=== PATIENT | male | born 1975 | race Caucasian/White ===

== ENCOUNTER 2020-04-24 00:06 | Emergency (ER) | payer OTHER, SELFPAY ==
[2020-04-24] VITALS (17 sets, daily range): BP systolic 129–163; BP diastolic 64–82; PULSE 51–77; RESP 11–18; TEMP 36.6; O2SAT 92–100; BMI 42.5
--- NOTE | 2020-04-24 00:13 | ED_ITS ---
HPI - Abdominal Pain General Chief Complaint: Abdominal Pain Stated Complaint: L Upper Quadrent Pain Time Seen by Provider: 04/24/20 00:06 Source: patient and EMS Mode of arrival: EMS Limitations: no limitations History of Present Illness HPI narrative: 44-year-old male nonsmoker with history of acute coronary syndr ome and left ureteral problem presents by EMS for evaluation of severe epigastric and left upper quadrant pain since this evening. His pain is intense and comes in waves. He denies any provocation or palliation. He has had nausea and vomited once. He admits to some diarrhea as well. He feels bloated and generally uncomfortable. He states this feels entirely different than a prior heart attack in 2017. Denies chest pain or shortness of breath. He is not dizzy nor weak or lightheaded. He denies any exposure to bad food or persons known to had COVID-19. MD complaint: abdominal pain Onset (ago): hour(s) Pain Consistency: intermittent Location: LUQ and epigastric Severity: moderate Quality: cramping and aching Radiation: LUQ Relieving factors: nothing Exacerbating factors: nothing Associated symptoms: nausea, vomiting and diarrhea Related Data Previous Rx's Medication Instructions Recorded hydrocodone-acetaminophen 1 tab PO Q4-6H PRN #10 tab 04/24/20 hyoscyamine sulfate 0.125 mg PO BID-QID PRN #20 tab 04/24/20 ondansetron 4 mg PO TID-QID PRN #10 tab 04/24/20 Allergies Allergy/AdvReac Type Severity Reaction Status Date / Time Penicillins Allergy Swelling Verified 04/24/20 00:59 of Lip/Tongue/Throat trimethoprim Allergy Swelling Verified 04/24/20 00:59 of Lip/Tongue/Throat Review of Systems Constitutional Constitutional: Denies chills, Denies fatigue, Denies fever(s), Denies frequent falls, Denies lethargy and Denies weakness Eyes Eyes: Denies change in vision, Denies eye discharge, Denies irritation and Denies loss of vision ENT Ears, Nose, Mouth, and Throat: Denies change in voice, Denies dizziness, Denies neck pain, Denies sore throat and Denies throat swelling Cardiovascular Cardiovascular: Denies chest pain, Denies irregular heart rhythm, Denies lightheadedness, Denies palpitations, Denies dyspnea, Denies dyspnea on exertion and Denies orthopnea Respiratory Respiratory: Denies cough, Denies dyspnea, Denies dyspnea on exertion and Denies wheezing Gastrointestinal Gastrointestinal: Reports abdominal pain, Denies change in bowel habits, Reports diarrhea, Reports nausea and Reports vomiting Musculoskeletal Musculoskeletal: Denies neck pain and Denies numbness Integumentary/Breasts Skin/Breast: Denies pruritus, Denies erythema, Denies rash and Denies wounds Neurologic Neurologic: Denies behavioral changes, Denies confusion, Denies dizziness, Denies frequent falls, Denies loss of vision, Denies numbness and Denies weakness Psychiatric Psychiatric: Denies anxiety, Denies behavioral changes, Denies confusion, Denies depression, Denies homicidal ideation and Denies suicidal ideation Endocrine Endocrine: Denies fatigue, Denies flushing and Denies palpitations Hematologic/Lymphatic Hematologic/Lymphatic: Denies easy bruising Allergic/Immunologic Allergic/Immunologic: Denies urticaria, Denies throat swelling and Denies wheezing Patient History Social History Smoking Status: Never smoker Smoking Status: Never smoker alcohol intake frequency: 0-2 drinks per day Substance Use Type: does not use Exam Narrative Exam Narrative: GENERAL: [44] year old patient appears stated age. Well- nourished, well-developed patient, in moderate distress, obviously uncomfortable, rubbing his upper abdomen and left upper quadrant. Holding an emesis bag. HEAD: Atraumatic. Normocephalic. EYES: Pupils equal round and reactive. Extraocular motions intact. No scleral icterus. No injection or drainage. ENT: Nose without bleeding, purulent drainage. Throat without erythema, tonsillar hypertrophy or exudate. Airway patent. NECK: Trachea midline. Non tender CARDIOVASCULAR: Regular rate and rhythm without murmurs, gallops, or rubs. RESPIRATORY: Clear to auscultation. Breath sounds equal bilaterally. No wheezes, rales, or rhonchi. GASTROINTESTINAL: Abdomen soft, tender in the epigastrium and left upper quadrant EXTREMITIES: No edema or joint tenderness. BACK: Nontender without deformity or crepitance. No flank tenderness. NEURO: AOx3. SKIN: No rash or erythema of visible areas Initial Vital Signs Initial Vital Signs: Vital Signs Pulse Rate 77 04/24/20 00:44 Pulse Oximetry 97 04/24/20 00:44 Course Orders Ordered: ED Orders 04/24/20 00:12 EKG-12 Lead Stat 04/24/20 00:30 Complete Blood Count AUTO DIFF Stat Comprehensive Metabolic Panel Stat D Dimer Stat Lipase Stat Troponin & CK Cardiac Panel Stat 04/24/20 01:03 CT abdomen pelvis w con Stat 04/24/20 04:45 XR acute abdomen series Stat Discontinued Medications Hydrocodone Bitart/Acetaminophen (Vicodin 5/325 Prepack) 1 bottle MISC SEEINSTR ONE Stop: 04/24/20 06:06 Al Hydrox/Mg Hydrox/Simethicone 20 ml/ Lidocaine HCl 15 ml 0 ml PO NOW ONE Stop: 04/24/20 02:36 Last Admin: 04/24/20 02:44 Dose: 35 ml Documented by: JACQUELINE Hydromorphone HCl (Dilaudid) 0.5 mg IV NOW ONE Stop: 04/24/20 00:13 Last Admin: 04/24/20 00:54 Dose: 0.5 mg Documented by: VEE Hydromorphone HCl (Dilaudid) 1 mg IV NOW ONE Stop: 04/24/20 03:07 Last Admin: 04/24/20 03:19 Dose: 1 mg Documented by: JACQUELINE Sodium Chloride (Normal Saline 0.9%) 1,000 mls @ 1,000 mls/hr IV BOLUS ONE Stop: 04/24/20 01:11 Last Infusion: 04/24/20 02:35 Dose: 0 mls/hr Documented by: Admin: 04/24/20 00:54 Dose: 1,000 mls/hr Documented by: VEE Ondansetron HCl (Zofran) 4 mg IV NOW ONE Stop: 04/24/20 00:13 Last Admin: 04/24/20 00:54 Dose: 4 mg Documented by: VEE Ondansetron HCl (Zofran Odt Prepack) 1 bottle MISC SEEINSTR ONE Stop: 04/24/20 06:06 Pantoprazole Sodium (Protonix) 40 mg IV NOW ONE Stop: 04/24/20 00:13 Last Admin: 04/24/20 00:54 Dose: 40 mg Documented by: VEE Vital Signs Vital signs: Vital Signs - 8 hr 04/24/20 00:44 04/24/20 00:50 04/24/20 01:00 Temperature 98 F Pulse Rate 77 74 75 Respiratory Rate 18 Blood Pressure 163/81 H 152/74 H Pulse Oximetry 97 100 97 MDM - Abdominal Pain Lab Data Result diagrams: 04/24/20 00:30 04/24/20 00:30 Labs: Lab Results 04/24/20 04/24/20 04/24/20 Range/Units 00:30 00:30 00:30 WBC 9.9 (4.5-11.0) X10^3/uL RBC 5.66 (4.5-5.9) X10^6/uL Hgb 17.4 (13.5-17.5) g/dL Hct 50.1 (41-53) % MCV 88.5 (80-100) fL MCH 30.8 (26-34) PG MCHC 34.8 (30-36) % RDW 13.4 (11.6-14.8) % Plt Count 189 (150-400) X10^3/uL Neut % (Auto) 68.4 (50-75) % Lymph % (Auto) 24.4 L (25-40) % [place] % (Auto) 5.3 (3-14) % Eos % (Auto) 1.3 L (2-4) % Baso % (Auto) 0.6 (0-2) % Neut # (Auto) 6700 (0881-1634) /uL Lymph # (Auto) 2400 (6120-7699) /uL [place] # (Auto) 500 (0-900) /uL Eos # (Auto) 100 (0-450) /uL Baso # (Auto) 100 (0-100) /uL D-Dimer 249 H (<230) ng/mL Sodium 140 (137-145) mmol/L Potassium 3.6 (3.4-5.1) mmol/L Chloride 102 (98-107) mmol/L Carbon Dioxide 30 (22-32) mmol/L BUN 15 (9-20) mg/dL Creatinine 1.05 (0.66-1.25) mg/dL Estimated GFR > 60.0 (>60) mL/min BUN/Creatinine Ratio 14.3 (6-22) Glucose 134 H (70-100) mg/dL Calcium 9.3 (8.4-10.2) mg/dL Total Bilirubin 0.6 (0.2-1.3) mg/dL AST 54 (17-59) IU/L ALT 104 H (<50) IU/L Alkaline Phosphatase 90 (38-126) U/L Total Creatine Kinase 144 (55-170) U/L CK-MB (CK-2) 2.61 H (<2.37) ng/mL CK-MB (CK-2) Rel Index 1.8 (1.5-5.0) % Troponin I < 0.012 (0.01-0.034) ng/mL Total Protein 8.3 H (6.3-8.2) g/dL Albumin 4.8 (3.5-5.0) g/dL Globulin 3.5 (1.7-4.1) g/dL Albumin/Globulin Ratio 1.4 (1.0-2.8) Lipase 92 (23-300) U/L MDM Narrative Medical decision making narrative: CT suggests ileus without obstruction. Labs reassuring. No vomiting. Pain greatly improved. Xray a few hours later dem onstrates no SBO. Return precautions given. Questions answered to his satsfaction. Discharge Plan Departure Patient Disposition: Home Clinical Impression: Abdominal pain, Vomiting and diarrhea Instructions: Diarrhea, DI for Abdominal Pain-Adult, DI for Vomiting -- Adult Activity Restrictions/Additional Instructions: 1. Drink plenty of fluids with frequent small sips. 2. For the next 24 hours a clear liquid diet is advised. After that please employ a brat diet which would include bananas, rice, apples, toast. 3. Please take medications as directed. 4. Please follow-up with your doctor in the next 1-2 days. Call the office for an appointment. 5. Please return to the emergency Department for any worsening or persistent symptoms, such as increasing pain or fever, or persistent vomiting Prescriptions: New hydrocodone-acetaminophen 5-325 mg tablet 1 tab PO Q4-6H PRN (Reason: pain) Qty: 10 RF: 0 hyoscyamine sulfate 0.125 mg tablet 0.125 mg PO BID-QID PRN (Reason: dyspepsia) Qty: 20 RF: 0 ondansetron 4 mg tablet,disintegrating 4 mg PO TID-QID PRN (Reason: nausea and vomiting) Qty: 10 RF: 0
[2020-04-24 00:39] LABS: Hematocrit 50.1 % (41-53); Hemoglobin 17.4 g/dL (13.5-17.5); Mean Corpuscular HGB Conc 34.8 % (30-36); White Blood Cell Count 9.9 X10^3/uL (4.5-11.0)
[2020-04-24 00:46] LABS: Add Manual Diff / Slide Review NO; Basophils Absolute Auto 100 /uL (0-100); Basophils Percent Auto 0.6 % (0-2); Eosinophils Absolute Auto 100 /uL (0-450); Eosinophils Percent Auto 1.3 % (2-4); Lymphocytes Absolute Auto 2400 /uL (1100-4500); Lymphocytes Percent Auto 24.4 % (25-40); Mean Corpuscular Hemoglobin 30.8 PG (26-34); Mean Corpuscular Volume 88.5 fL (80-100); Monocytes Absolute Auto 500 /uL (0-900); Monocytes Percent Auto 5.3 % (3-14); Neutrophils Absolute Auto 6700 /uL (1500-7000); Neutrophils Percent Auto 68.4 % (50-75); Platelet Count 189 X10^3/uL (150-400); Red Blood Cell Count 5.66 X10^6/uL (4.5-5.9); Red Cell Distribution Width 13.4 % (11.6-14.8)
[2020-04-24 00:49] LABS: D Dimer 249 ng/mL (<230)
[2020-04-24 00:50] LABS: Alanine Aminotransferase 104 IU/L (<50); Albumin 4.8 g/dL (3.5-5.0); Albumin Globulin Ratio 1.4 (1.0-2.8); Alkaline Phosphatase 90 U/L (38-126); Aspartate Aminotransferase 54 IU/L (17-59); BUN Creatinine Ratio 14.3 (6-22); Bilirubin Total 0.6 mg/dL (0.2-1.3); Blood Urea Nitrogen 15 mg/dL (9-20); Calcium 9.3 mg/dL (8.4-10.2); Carbon Dioxide 30 mmol/L (22-32); Chloride 102 mmol/L (98-107); Creatine Kinase 144 U/L (55-170); Estimated Glomerular Filt Rate > 60.0 mL/min (>60); Globulin 3.5 g/dL (1.7-4.1); Glucose 134 mg/dL (70-100); HEMOLYSIS < 15 (0-50); Lipase 92 U/L (23-300); Potassium 3.6 mmol/L (3.4-5.1); Sodium 140 mmol/L (137-145); Total Protein 8.3 g/dL (6.3-8.2)
[2020-04-24] MEDS: ONDANSETRON 4 MG/2 ML INJ IV (00:54)
[2020-04-24] MEDS: HYDROMORPHONE 0.5 MG INJ IV (00:54)
[2020-04-24] MEDS: SODIUM CHLORIDE 0.9% 1,000 ML 1000 ML IV (00:54)
[2020-04-24] MEDS: PANTOPRAZOLE 40 MG VIAL IV (00:54)
[2020-04-24 01:02] LABS: Troponin I < 0.012 ng/mL (0.01-0.034)
--- NOTE | 2020-04-24 01:03 | DI.CT.S_ITS ---
PROCEDURE: CT ABDOMEN PELVIS W CON INDICATIONS: severe upper abdomen pain TECHNIQUE: After the administration of intravenous contrast, 5 mm thick sections acquired from the diaphragm to the symphysis. 5 mm coronal and sagittal reformats were acquired. For radiation dose reduction, the following was used: automated exposure control, adjustment of mA and/or kV according to patient size. COMPARISON: [facility], CR, XR ACUTE ABDOMEN SERIES, 04/24/2020, 4:34. FINDINGS: Image quality: Excellent. ABDOMEN: Lung bases: There is mild dependent atelectasis. Heart size is normal. Solid organs: There is diffuse hypoattenuation of the liver consistent with fatty infiltration with mild relative sparing along the gallbladder fossa. The gallbladder appears within normal limits without calcified gallstones. Biliary system is non-dilated. Pancreas demonstrates no discrete mass. No peripancreatic fat stranding or fluid collections. No pancreatic duct dilatation. The spleen is normal in size. No adrenal nodules. There is moderate left hydroureteronephrosis with prominent distention of the mid and distal ureter. This extends to the terminal segment of the ureter at the ureterovesicular junction which is nondistended . No calcified obstructing stone visualized. There is mild wall enhancement of the nondistended segment of ureter. There are 2 punctate densities within the left kidney which may represent punctate nonobstructing stones. There is no right hydronephrosis or right renal stones. The right ureter is nondistended. Peritoneum and bowel: Bowel loops demonstrate normal wall thickness and caliber. There is colonic diverticulosis without acute diverticulitis. No free fluid or air. Nodes and vessels: There are few mildly enlarged mayelin hepatis lymph nodes measuring up to 1.2 cm in short axis. Aorta and inferior vena cava are normal in size. Miscellaneous: No ventral hernias. PELVIS: Genitourinary: Bladder wall thickness is normal. Miscellaneous: No inguinal hernias or adenopathy. Bones: No suspicious bony lesions. No vertebral body compression fractures. IMPRESSION: 1. Moderate left hydroureteronephrosis with prominent distention of the mid and distal left ureter extending to a short nondistended segment at the UVJ which demonstrates mild wall enhancement. No calcified obstructing stone visualized. Differential considerations include a ureteral stricture or an intramural mass lesion. Recommend further evaluation with cystoscopy if clinically indicated. 2. Colonic diverticulosis without acute diverticulitis. 3. Mildly enlarged mayelin hepatis lymph nodes are nonspecific and may be reactive. 4. Hepatic steatosis. Dictated by: Claus Corbin M.D. on 04/24/2020 at 9:05 Approved by: Claus Corbin M.D. on 04/24/2020 at 9:15
[2020-04-24 01:05] LABS: CKMB % Relative Index 1.8 % (1.5-5.0); Creatine Kinase MB 2.61 ng/mL (<2.37)
[2020-04-24] MEDS: MAG HYDROX/ALUMINUM/SIMETH SUS 20 ML, LIDOCAINE VISCOUS 2% 15 ML PO (02:44)
--- NOTE | 2020-04-24 03:04 | PC.NURSE ---
Pt reports had no relief from gi Cocktail.
[2020-04-24] MEDS: HYDROMORPHONE 1 MG INJ IV (03:19)
--- NOTE | 2020-04-24 04:45 | DI.RAD.S_ITS ---
PROCEDURE: XR ACUTE ABDOMEN SERIES INDICATIONS: Abdominal pain TECHNIQUE: One view chest and two views of the abdomen were acquired. COMPARISON: [facility], CT, CT ABDOMEN PELVIS W CON, 04/24/2020, 1:07. FINDINGS: Surgical changes and devices: None. Chest: Lungs are clear. Heart size is normal. No pleural effusions. No pneumoperitoneum. Abdomen: Bowel gas pattern is normal. No suspicious calcifications. Visualized solid organ contours appear normal. Contrast material noted in the genital urinary collecting systems and urinary bladder related to earlier CT scan. There is severe left-sided hydroureteronephrosis. Bones: No suspicious bony lesions. IMPRESSION: Severe left-sided hydroureteronephrosis. Dictated by: Isabella Plascnecia MD, PhD on 04/24/2020 at 8:22 Approved by: Isabella Plascencia MD, PhD on 04/24/2020 at 8:24
[2020-04-24] MEDS: ONDANSETRON 4 MG ODT PREPACK 1 BOTTLE MISC (06:21)
[2020-04-24] MEDS: HYDROCODONE/ACET 5/325 PREPACK 1 BOTTLE MISC (06:21)
== END 2020-04-24 06:39 | disposition home or self-care (01) ==
PROVIDERS: Emergency Provider Emergency Medicine
DX: R10.13 Epigastric pain (principal); R10.12 Left upper quadrant pain; R11.2 Nausea with vomiting, unspecified; R19.7 Diarrhea, unspecified
CPT/HCPCS: 36415; 74022; 74177; 80053; 82550; 82553; 83690; 84484; 85025; 85379; 93005; 96361; 96374; 96375; 96376; 99284; C9113; J1170; J2405; Q9967